=== PATIENT | female | born 1985 | race Caucasian/White ===

== ENCOUNTER 2016-11-09 15:13 | Emergency (ER) | payer MEDICAID ==
[~2016-11-09 15:13] MED LIST: COLACE-DPS100 MG PO; IRON325 M1 PO; LOVENOX DP40 MG/0.4 SQ; MOTRIN-DPS800 MG PO; NIPPLECREAM TP; PRENATAL VIT1 TAB PO; TYLENOL #3 DPS1 TAB PO
--- NOTE | 2016-11-14 10:36 | ER ---
ADMIT: 11/09/2016 RM/LOC: ER [facility] MR#: [id number] [address] [id number] CLARITA KING Cecilia [address] [place] [address] Emergency Room Report SEX: F AGE: 31 : 1985 DATE: 11/09/2016 ADDENDUM: A 31-year-old, white female coming in with lower lung pain posterior on the right. She has had CVA. She has had PEs, had just gotten off her anticoagulants in the last 4 months or so. She continues to smoke. At this time, CTA was negative. Exam is questionable whether she has some right upper quadrant pain. She is on this all fat diet, the keto diet. However, it is overall suggestive of possible gallbladder disease. She is not jaundiced. She has no fever. She is not vomiting. However, she had ate, so we could not really get an ultrasound done today. At this time, we are going to discharge her home. No-fat diet, and then she is going to follow up with her doc, so that they can further evaluate this. CONDITION ON DISCHARGE: Good. Kaushik Smith MD/ nilda JOB #: [id number] CC: Kaushik Smith MD, Attending Physician
== END 2016-11-09 16:35 | disposition home or self-care (01) ==
LOC: ER 15:13
DX: R07.89 Other chest pain (principal)